=== PATIENT | female | born 1990 | race Caucasian/White ===

== ENCOUNTER 2022-11-17 14:22 | Outpatient (CLI) | payer BC, SELFPAY | END 2022-11-17 14:23 | disposition home or self-care (01) | PROVIDERS: Visit Provider Obstetrics & Gynecology | DX: Z01.419 Encounter for gynecological examination (general) (routine) without abnormal findings (principal); L67.9 Hair color and hair shaft abnormality, unspecified | CPT/HCPCS: 84443 ==

== ENCOUNTER 2023-02-04 09:06 | Outpatient (CLI) | payer BC, SELFPAY ==
--- NOTE | 2023-02-04 09:15 | CRLHL7_ITS ---
For Patients: As a result of the Century Cures Act, medical imaging exams and procedure reports are released immediately into your electronic medical record. You may view this report before your referring provider. If you have questions, please contact your health care provider. BILATERAL SCREENING MAMMOGRAM WITH COMPUTER-AIDED DETECTION AND TOMOSYNTHESIS TECHNIQUE: CC and MLO views were obtained. These mammographic images have been obtained using full-field digital technique. These mammographic images were interpreted with the benefit of computer-aided detection. Breast Tomosynthesis was used in this interpretation. COMPARISON FILM: 11/13/21. FINDINGS: The breasts are heterogeneously dense, which may obscure small masses IMPRESSION: There is no radiographic evidence for malignancy. ASSESSMENT: BI-RADS Category 1: Negative RECOMMENDATION: Routine screening mammogram in 1 year. A lay language report of this examination will be provided to the patient. Carlos Quintero M.D. Diagnostic Radiologist [email or web address] Transcribed: 3:00 p.[email or web address] bahena/Dictated by: Carlos Quintero MD @ 02/04/2023 11:08:00 AM (Electronically Signed)
== END 2023-02-04 09:07 | disposition home or self-care (01) ==
LOC: MAMMO 09:07
PROVIDERS: Visit Provider Obstetrics & Gynecology
DX: Z12.31 Encounter for screening mammogram for malignant neoplasm of breast (principal); Z80.3 Family history of malignant neoplasm of breast; R92.2 Inconclusive mammogram
CPT/HCPCS: 77063; 77067

== ENCOUNTER 2024-03-02 09:19 | Outpatient (CLI) | payer BC, SELFPAY ==
--- OUTSIDE RECORDS SUMMARY | 2024-03-02 09:25 | XMS_ITS | Clinical Summary ---
Author Organization [employer] [facility] Address [place], [place] [address] Care Team Providers Care Mobile Manager Name Role Phone Taylor Chester NP Primary Care Provider Unavailabl e Allergies No known active allergies Medications No known medications Immunizations Name Administration Dates Next Due DTP 01/04/1993, 2,1991,09/04 DTaP 07/11/1996 HIB PRP-T (ActHIB,Hiberix) 10/05/1992,,1991,09/04 HPV 9 (Gardasil 9) 07/26/2007,03/12/2007, 007 Hepatitis A (Adult) 12/16/2006 Hepatitis A (Peds) 07/26/2007 Hepatitis A, Unspecified 07/26/2007,12/16/2006 Hepatitis B (Peds) 05/06/1999,11/30/1998, 999 Human Papilloma Virus Vaccine 07/26/2007, 007,12/16/2006 Influenza A (H1N1), Inactivated 07/23/2009 Influenza, IIV3 (Age 6-35 mos) 03/07/2015,2009 Influenza, IIV3 (Age >=3 years) 03/12/2012 Influenza, IIV4 03/13/2020,03/07/2019 MMR 07/11/1996,10/05/1992 Meningococcal Vaccine (Menactra) 01/05/2008 Oral Polio Vaccine 07/11/1996, 3,1991,09/04 Td (Age >=7 Years) 10/30/2003 Td, Preservative Free (age >= 7 Years) 4 Tdap 08/27/2020, 9,01/23/2017,01/04 Social History Tobacco Use Types Packs/Day Years Used Date Smoking Tobacco: Never Smokeless Tobacco: Never Tobacco Cessation:Counseling Given: Yes Alcohol Use Standard Drinks/Week Comments Yes 0 (1 standard drink = 0.6 oz pur e alcohol) occ. Social Connections Answer Date Recorded Frequency of Communication with Friends and Fami ly Not on file 02/20/2022 Sex and Gender Information Value Date Recorded Sex Assigned at Not on file Gender Identity Female 02/20/2022 6:39 AM CDT Sexual Orientation Not on file Obstetrics History Last Filed Vital Signs Vital Sign Reading Time Taken Comments Blood Pressure 116/66 12/31/2016 4:45 PM CDT Pulse 82 12/31/2016 4:45 PM CDT Temperature 37.5 ??C (99.5 ??F) 12/31/2016 4:45 PM CD T Respiratory Rate 16 12/31/2016 4:45 PM CDT Oxygen Saturation 100% 12/31/2016 4:45 PM CDT Inhaled Oxygen Concentration - - Weight 64.4 kg (142 lb) 12/31/2016 4:45 PM CDT Height 164.5 cm (5' 4.76) 12/31/2016 4:45 PM CD T Body Mass Index 23.8 12/31/2016 4:45 PM CDT Plan of Treatment Upcoming Encounters Date Type Department Care Team (Late st Contact Info) Description 07/15/2024 9:00 AM COIL INSPECTOR Office Visit [facility] [address] [place] [address] [place] [id number] Natalya Perdue MD [address] [facility] [address] [place] [address] Health Maintenance Due Date Last Done Comments Depression screening for age 12+ 2003 HIV for age 15-65 2006 Hepatitis C screening for age 18-79 2009 BMI (ht and wt on same day) for age 18+ 12/31/2017 12/31/2016 COVID-19 vaccine series ( season) 2024 07/30/2021, 02/12/2021, 01/22/2021 Influenza for age 9-49 02/07/2024 , 03/07/2019, 03/12/2012, Additional history exists Pap test for age 21-65 07/19/2024 07/19/2021, 2021 Tetanus booster 08/27/2030 08/27/2020, 12/06, 01/23/2017, Additional history exists Tdap Completed 08/27/2020, 12/06, 01/23/2017, Additional history exists Pneumococcal series for age 6-64 Aged Out No longer eligible based on patient's age to complete this topic Procedures Procedure Name Priority Date/Time Associated Diagnosis Comments HPV HIGH RISK Routine 07/19/2021 2:20 PM COIL INSPECTOR from Last 3 Months or Most Recently Relevant to Health Maintenance Results * HPV HIGH RISK (07/19/2021 2:20 PM COIL INSPECTOR) TYPE 16 Negative Negative 07/24/2021 12:03 PM COIL INSPECTOR [facility] TYPE 18 Negative Negative 07/24/2021 12:03 PM COIL INSPECTOR [facility] OTHER HIGH RISK TYPES Negative Negative 07/24/2021 12:03 PM COIL INSPECTOR [facility] Other (Cervical/Vagina l) 07/19/2021 2:20 PM COIL INSPECTOR 07/23/2021 7:56 AM COIL INSPECTOR Narrative [facility] - 07/24/2021 12:03 PM COIL INSPECTOR HPV types 16, 18, 31, 33, 35, 39, 45, 51, 52, 56, 58, 59, 66 and 68 DNA were undetectable or below the pre-set threshold. Methodology: Kelvin Rocio 4800 HPV Test Nga Plaza MD MICROBIOLOGY [facility] [address] [place] [address], from Last 3 Months or Most Recently Relevant to Health Maintenance Care Teams Mobile Manager Relationship Specialty Start Date End Date Taylor Chester NP PCP - General Nurse Practitioner 11/02/13
--- OUTSIDE RECORDS SUMMARY | 2024-03-02 09:25 | XMS_ITS | Referral Summary ---
Author Organization [employer] Address [address] [facility] [place] [address] Care Team Providers Care Pharmacy Care Coordinator Name Role Phone Yanira Mitchell MD Primary Care Provider [phone] Allergies Active Allergy Reactions Criticality Noted Date Comments No Known Allergies 08/25/2003 Seasonal Allergies 07/21/2018 Medications Medication Sig Dispensed Refills Start Date End Date Status Vit-Fe Fumarate-FA ( MULTIVITAMIN W/IRON) 27-0.8 MG tablet Take 1 tablet by mouth daily Active Docosahexaenoic Acid ( DHA PO) Take 1 tablet by mouth daily Active norethin-eth estrad triphasic (ARANELLE/THUY/TRI-NOR INYL) 0.5/1/0.5-35 MG-MCG tabletIndications:Encou nter for initial prescription of contraceptive pills Take 1 tablet by mouth daily 84 tablet 3 04/28/2019 Active Active Problems Problem Noted Date Diagnosed Date state 03/14/2019 Indication for care in labor or delivery 019 Supervision of normal first , antepartu 12/22/2018 Family history of breast cancer in first degree relative 01/18/2018 History of atypical nevus 11/10/2011 Overview: Do you wish to do the replacement in the background? yes Menorrhagia 11/10/2011 Seasonal allergic rhinitis Resolved Problems Problem Noted Date Diagnosed Date Resolved Date Oral contraceptive pill surveillance 01/18/2016 12/22/2018 CARDIOVASCULAR SCREENING; LD L GOAL LESS THAN 160 11/06/2011 12/22/2018 Other ankle sprain and strain 05/18/2007 06/25/2007 Edema 05/18/2007 11/10/2011 Pain in joint, shoulder region 06/16/2006 11/10/2011 Other joint derangement, not elsewhere classified, shoulder region 06/16/2006 11/10/2011 Other acne 06/17/2005 01/20/2016 Mild intermittent asthma with exacerbation 06/17/2005 11/10/2011 Overview: exercise induced Other congenital anomaly of upper limb, 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 Adler PT Immunizations Name Administration Dates Next Due DTAP (<7y) 07/11/1996 HEPA 07/26/2007,12/16/2006 HIB (PRP-T) 10/05/1992, 2,1991,1991 HPV 07/26/2007,03/12/2007,12/16/2006 HepB 05/06/1999,11/30/1998,10/26/1998 Historical DTP/aP 01/04/1993, 2,1991,1991 Influenza (H1N1) 07/23/2009 Influenza (IIV3) PF 03/12/2012,07/23/2009 Influenza Vaccine >6 months,quad, PF 03/07/2019 MMR 07/11/1996,10/05/1992 Meningococcal ACWY (Menactra??) 01/05/2008 OPV, trivalent, live 07/11/1996,01/04/19 93,1991,1991 TD,PF 7+ (Tenivac) 10/30/2003 TDAP Vaccine (Adacel) 12/22/2018,01/23/2017 TDAP Vaccine (Boostrix) 01/05/2008 Social History Tobacco Use Types Packs/Day Years Used Date Smoking Tobacco: Never Smokeless Tobacco: Never Tobacco Cessation:Counseling Given: No Alcohol Use Standard Drinks/Week Comments No 2 (1 standard drink = 0.6 oz pur e alcohol) 2-3 drinks weekly AUDIT-C Answer Date Recorded Frequency of Alcohol Consumption Never 07/21/2018 Average Number of Drinks Not on file 019 Frequency of Binge Drinking Not on file 07/09 PHQ-2 Answer Date Recorded PHQ-2 Score 0 04/28/2019 [place] Depression Scale Answer Date Recorded [place] Depression Score 0 03/15/2019 Last EPDS Self Harm Result Not on file 03/15 Adolescent Education Answer Date Record ed Getting School Help Needed Not on file 03/16 Sex and Gender Information Value Date Recorded Sex Assigned at Female 12/31/2018 5:42 PM CDT Gender Identity Female 12/31/2018 5:42 PM CDT Sexual Orientation Straight 12/31/2018 5: 42 PM CDT Last Filed Vital Signs Vital Sign Reading Time Taken Comments Blood Pressure 102/70 04/28/2019 8:32 AM ANALOG IC DESIGN ENGINEER Pulse 62 03/16/2019 8:00 AM CDT Temperature 36.7 ??C (98.1 ??F) 03/16/2019 8:00 AM CD T Respiratory Rate 18 03/16/2019 8:00 AM CDT Oxygen Saturation 100% 01/18/2018 8:06 AM CDT Inhaled Oxygen Concentration - - Weight 69.4 kg (153 lb) 04/28/2019 8:32 AM ANALOG IC DESIGN ENGINEER Height 162.6 cm (5' 4) 03/13/2019 10:38 PM CDT Body Mass Index 26.26 03/13/2019 10:38 PM CDT Plan of Treatment Not on file Advance Directives For more information, please contact: [phone] * No Code Status (Latest Code Status on File) Date Activated Date Inactivated Comments 08/25/2003 8:44 AM 08/25/2003 9:44 AM Care Teams Pharmacy Care Coordinator Relationship Specialty Start Date End Date Yanira Mitchell MD PCP - General foundry equipment mechanic 03/16/20
--- OUTSIDE RECORDS SUMMARY | 2024-03-02 09:25 | XMS_ITS | Encounter Summary ---
Author Organization [employer] Address [address] [facility] [place] [address] Care Team Providers Care Merchandise Worker Name Role Phone [facility] Primary Care Provi dorian Radha Ham MD Unavailable Unavailable Radha Ham MD Primary Care Provider Unava Yanira Pascal MD Primary Care Provider [phone] Travis Márquez MD Unavailable [phone] Cyndi Connolly MD Unavailable Unavaila Ana Maria Bello MD Unavailable [phone] Encounter Details Date Type Department Care Team (Late st Contact Info) Description 10/11/[address] [facility] Medical [address] [address] Kirsten Youssef DO [address] [address] Social History Tobacco Use Types Packs/Day Years Used Date Smoking Tobacco: Never Smokeless Tobacco: Never Alcohol Use Standard Drinks/Week Comments No 2 (1 standard drink = 0.6 oz pur e alcohol) 2-3 drinks weekly AUDIT-C Answer Date Recorded Frequency of Alcohol Consumption Never 07/21/2018 Average Number of Drinks Not on file 019 Frequency of Binge Drinking Not on file 07/09 PHQ-2 Answer Date Recorded PHQ-2 Score 0 06/16/2018 Comments Yes Sex and Gender Information Value Date Recorded Sex Assigned at Female 12/31/2018 5:42 PM CDT Gender Identity Female 12/31/2018 5:42 PM CDT Sexual Orientation Straight 12/31/2018 5: 42 PM CDT documented as of this encounter Plan of Treatment Not on file documented as of this encounter Visit Diagnoses Not on filedocumented in this encounter Care Teams Merchandise Worker Relationship Specialty Start Date End Date [facility], [address] [address] PCP - General 12/03/17 03/01/19 Radha Ham MD NO INFO AVAILABLE 04/29/2022 PCP - General Internal Medicine 03/02/19 03/15/20 Yanira Mitchell MD NO INFO AVAILABLE 04/29/2022 PCP - General water leak repairer 03/16/20 Radha Ham MD NO INFO AVAILABLE 04/29/2022 Assigned PCP 01/24/18 01/19/21 Travis Márquez MD [address] [facility] [address] [place] [address] Assigned OBGYN Provider 03/30/20 Cyndi Connolly MD Assigned OBGYN Provider 10/28/20 11/01/21 Ana Maria Alvarenga MD [address] [place] [address] Assigned OBGYN Provider 11/02/21 documented as of this encounter
--- OUTSIDE RECORDS SUMMARY | 2024-03-02 09:25 | XMS_ITS | Clinical Summary ---
Author Organization [place] Address [address] [facility] [place] [address] Care Team Providers Care Uniform Patrol Police Officer Name Role Phone Yanira Mitchell MD Primary Care Provider [phone] Allergies Active Allergy Reactions Criticality Noted Date [...] Vaccine (Adacel) 12/22/2018,01/23/2017 TDAP Vaccine (Boostrix) 01/05/2008 Family History Medical History Relation Comments Prostate Cancer Father Breast Cancer Mother neg BRCA gene Cancer Paternal Aunt melanoma Cancer Paternal Grandmother kidney canc er Relation Status Comments Brother Alive Father Alive Maternal Grandfather Maternal Grandmother Alive Mother Alive Paternal Aunt Paternal Grandfather Alive Paternal Grandmother Alive Sister Alive Social History Tobacco Use Types Packs/Day Years [...] Answer Date Recorded PHQ-2 Score 0 04/28/2019 [place] Depression Scale Answer Date Recorded [place] Depression Score 0 03/15/2019 Last EPDS Self [...] Comments Blood Pressure 102/70 04/28/2019 8:[address] SUPERVISOR Pulse 62 03/16/2019 8:00 AM CDT Temperature 36.7 ??C (98.1 ??F) 03/16/2019 8:00 AM CD T Respiratory Rate 18 03/16/2019 8:00 AM CDT Oxygen Saturation 100% 01/18/2018 8:06 AM CDT Inhaled Oxygen Concentration - - Weight 69.4 kg (153 lb) 04/28/2019 8:[address] SUPERVISOR Height 162.6 cm (5' 4) 03/13/2019 10:38 PM CDT Body Mass Index 26.26 03/13/2019 10:38 PM CDT Plan of Treatment Not on file Advance Directives For more information, please contact: [phone] * No Code Status (Latest Code Status on File) Date Activated Date Inactivated Comments 08/25/2003 8:44 AM 08/25/2003 9:44 AM Care Teams Uniform Patrol Police Officer Relationship Specialty Start Date End Date Yanira Mitchell MD PCP - General jewel sawyer 03/16/20
--- OUTSIDE RECORDS SUMMARY | 2024-03-02 09:25 | XMS_ITS | Encounter Summary ---
Author Organization [facility] Address [address] [facility] [place] [address] Care Team Providers Care Space Systems Operations Craftsman Name Role Phone [facility] Provi dorian Radha Ham MD Unavailable Unavailable Radha Ham MD Primary Care Provider Unava Yanira Pascal MD Primary Care Provider [phone] Travis Márquez MD Unavailable [phone] Cyndi Connolly MD Unavailable Unavaila Ana Maria Bello MD Unavailable [phone] Encounter Details Date Type Department Care Team (Late st Contact Info) Description 12/23/2018 [facility] Medical Advice [address] [address] Therese Nance APRN [facility] [address] [facility] [address] [place] [address] Social History Tobacco Use Types Packs/Day Years [...] on filedocumented in this encounter Care Teams Space Systems Operations Craftsman Relationship Specialty Start Date End Date [facility], [address] [address] PCP - General 12/03/17 03/01/19 Radha Ham MD NO INFO AVAILABLE 04/29/2022 PCP - General Internal Medicine 03/02/19 03/15/20 Yanira Mitchell MD NO INFO AVAILABLE 04/29/2022 PCP - General secondary history teacher 03/16/20 Radha Ham MD NO INFO AVAILABLE 04/29/2022 Assigned PCP 01/24/18 01/19/21 Travis Márquez MD [address] [facility] [address] [place] [address] Assigned OBGYN Provider 03/30/20 Cyndi Connolly MD Assigned OBGYN Provider 10/28/20 11/01/21 Ana Maria Alvarenga MD [address] [place] [address] Assigned OBGYN Provider 11/02/21 documented as of this encounter
--- OUTSIDE RECORDS SUMMARY | 2024-03-02 09:25 | XMS_ITS | Encounter Summary ---
Author Organization [employer] Address [address] [facility] [place] [address] Care Team Providers Care Setter Machine Name Role Phone Radha Ham MD Unavailable Unavailable Radha Ham MD Primary Care Provider Yanira Ureña MD Primary Care Provider [phone] Travis Márquez MD Unavailable [phone] Cyndi Connolly MD Unavailable Unavaila Ana Maria Bello MD Unavailable [phone] Encounter Details Date Type Department Care Team (Late st Contact Info) Description 03/13/2019 Telephone [facility] Nurse Advisors [address] [place] [address] Madelaine Lopes, RN Social History Tobacco Use Types Packs/Day Years [...] Answer Date Recorded PHQ-2 Score 0 06/16/2018 [place] Depression Scale Answer Date Recorded [place] Depression Score 0 03/15/2019 Last EPDS Self Harm Result Not on file 03/15 Comments Yes Sex and Gender Information Value Date Recorded Sex Assigned at Female 12/31/2018 5:42 PM CDT Gender Identity Female 12/31/2018 5:42 PM CDT Sexual Orientation Straight 12/31/2018 5: 42 PM CDT documented as of this encounter Plan of Treatment Not on file documented as of this encounter Visit Diagnoses Not on filedocumented in this encounter Care Teams Setter Machine Relationship Specialty Start Date End Date Radha Ham MD NO INFO AVAILABLE 04/29/2022 PCP - General Internal Medicine 03/02/19 03/15/20 Yanira Mitchell MD NO INFO AVAILABLE 04/29/2022 PCP - General machine learning intern 03/16/20 Radha Ham MD NO INFO AVAILABLE 04/29/2022 Assigned PCP 01/24/18 01/19/21 Travis Márquez MD [address] [place] [address] [address] [place] [address] Assigned OBGYN Provider 03/30/20 Cyndi Connolly MD Assigned OBGYN Provider 10/28/20 11/01/21 Ana Maria Alvarenga MD [address] [place] [address] Assigned OBGYN Provider 11/02/21 documented as of this encounter
--- OUTSIDE RECORDS SUMMARY | 2024-03-02 09:25 | XMS_ITS | Encounter Summary ---
Author Organization [place] Address [address] [place] [address] Care Team Providers Care Disc Pad Grinder Name Role Phone [facility] Primary Care Provi dorian Radha Ham MD Unavailable Unavailable Radha Ham MD Primary Care Provider Unava Yanira Pascal MD Primary Care Provider [phone] Travis Márquez MD Unavailable [phone] Cyndi Connolly MD Unavailable Unavaila Ana Maria Bello MD Unavailable [phone] Encounter Details Date Type Department Care Team (Late st Contact Info) Description 12/21/2018 [facility] Medical Advice [facility] [address] [place] [id number] Gabbie Koroma Social History Tobacco Use Types Packs/Day Years [...] on filedocumented in this encounter Care Teams Disc Pad Grinder Relationship Specialty Start Date End Date [facility], [address] [address] PCP - General 12/03/17 03/01/19 Radha Ham MD NO INFO AVAILABLE 04/29/2022 PCP - General Internal Medicine 03/02/19 03/15/20 Yanira Mitchell MD NO INFO AVAILABLE 04/29/2022 PCP - General shredding specialist 03/16/20 Radha Ham MD NO INFO AVAILABLE 04/29/2022 Assigned PCP 01/24/18 01/19/21 Travis Márquez MD [address] [place] [address] [address] [place] [address] Assigned OBGYN Provider 03/30/20 Cyndi Connolly MD Assigned OBGYN Provider 10/28/20 11/01/21 Ana Maria Alvarenga MD [address] [place] [address] Assigned OBGYN Provider 11/02/21 documented as of this encounter
--- NOTE | 2024-03-02 09:45 | CRLHL7_ITS ---
For Patients: As a result of the Century Cures Act, medical imaging exams and procedure reports are released immediately into your electronic medical record. You may view this report before your referring provider. If you have questions, please contact your health care provider. BILATERAL SCREENING MAMMOGRAM WITH COMPUTER-AIDED DETECTION AND TOMOSYNTHESIS TECHNIQUE: CC and MLO views were obtained. These mammographic images have been obtained using full-field digital technique. These mammographic images were interpreted with the benefit of computer-aided detection. Breast Tomosynthesis was used in this interpretation. COMPARISON FILM: 02/04/23, 11/13/21. FINDINGS: There are scattered areas of fibroglandular density IMPRESSION: There is no radiographic evidence for malignancy. ASSESSMENT: BI-RADS Category 1: Negative RECOMMENDATION: Routine screening mammogram in 1 year. A lay language report of this examination will be provided to the patient. Carlos Quintero M.D. Diagnostic Radiologist [email or web address] EDGAR/Dictated by: Carlos Quintero MD @ 03/10/2024 12:18:00 PM (Electronically Signed)
== END 2024-03-02 09:20 | disposition home or self-care (01) ==
LOC: MAMMO 09:20
PROVIDERS: Visit Provider Obstetrics & Gynecology
DX: Z12.31 Encounter for screening mammogram for malignant neoplasm of breast (principal); Z80.3 Family history of malignant neoplasm of breast
CPT/HCPCS: 77063; 77067

== ENCOUNTER 2025-03-20 13:24 | Outpatient (CLI) | payer BC, SELFPAY ==
--- NOTE | 2025-03-20 13:40 | CRLHL7_ITS ---
For Patients: As a result of the Century Cures Act, medical imaging exams and procedure reports are released immediately into your electronic medical record. You may view this report before your referring provider. If you have questions, please contact your health care provider. INDICATION: BILATERAL SCREENING MAMMOGRAM, ASYMPTOMATIC 34 Y/O FEMALE COMPARISON: 03/02/2024, 02/04/2023, 11/13/2021 TECHNIQUE: Digital mammogram in CC and MLO projections including computer-aided detection (CAD) and tomosynthesis. BREAST COMPOSITION: There are scattered areas of fibroglandular density. FINDINGS: No suspicious findings. ASSESSMENT: BI-RADS 1 Negative RECOMMENDATION: Annual screening mammogram. A lay language report of this examination will be provided to the patient. Dictated by: Dee Cortes MD @ 03/21/2025 18:29:14 (Electronically Signed)
== END 2025-03-20 13:25 | disposition home or self-care (01) ==
LOC: MAMMO 13:24
PROVIDERS: Visit Provider Obstetrics & Gynecology
DX: Z12.31 Encounter for screening mammogram for malignant neoplasm of breast (principal); Z80.3 Family history of malignant neoplasm of breast
CPT/HCPCS: 77063; 77067